=== PATIENT | female | born 1995 | race African-American/Black ===

== ENCOUNTER 2021-04-12 23:24 | Emergency (ER) | payer OTHER, MEDICAID, SELFPAY ==
[2021-04-12 23:32] VITALS: BP 120/63; PULSE 100; RESP 18; TEMP 37; O2SAT 98; BMI 33.5
[2021-04-12 23:39] VITALS: BP 120/63; PULSE 102; RESP 26; O2SAT 98
[2021-04-12 23:45] VITALS: BP 136/79; PULSE 96; RESP 32; O2SAT 98
--- NOTE | 2021-04-12 23:47 | ED.CHESTPAIN ---
HPI - Chest Pain General Chief Complaint: Chest Pain Stated Complaint: Chest pain x2 hours 24weeks Time Seen by Provider: 04/12/21 23:30 Source: patient Mode of arrival: EMS Limitations: no limitations History of Present Illness HPI narrative: 25-year-old female daily smoker is a (2+1) A1 presents with a recurrent episode of sharp and stabbing the left anterior chest pain that radiates down her arm. She denies any obvious provocation or palliation. She has been having this off and on throughout much of her and has been evaluated on multiple occasions without any significant findings. She is not dizzy nor weak or lightheaded. She denies any recent injury. She denies any history of recent travel or blood clot. She has had no fever or chills. She has had no cough. The pain started tonight while at rest and is typical and its severity, quality and distribution as normal. Patient contacted her OB provider who suggested she present to the emergency department for evaluation. Related Data Allergies Allergy/AdvReac Type Severity Reaction Status Date / Time ketamine Allergy Verified 04/12/21 23:32 Review of Systems Review of Systems Narrative: GENERAL: Denies chills, fatigue, malaise, fever, sweats. HEENT: Denies sinus pain, ear pain, sore throat, difficulty swallowing, dizziness. RESPIRATORY: Denies dyspnea, cough, wheezing, hemoptysis, sputum. CARDIOVASCULAR: See HPI GASTROINTESTINAL: Denies nausea, vomiting, abdominal pain, diarrhea, constipation, melena. : Denies dysuria, frequency, incontinence, hematuria, urinary retention. MUSCULOSKELETAL: denies weakness, joint pain, or bony pain SKIN: Denies rash, skin lesions, or other NEUROLOGIC: Denies weakness, headache, numbness, change in speech, confusion, seizures, incoordination. PSYCHIATRIC: No concerning psychosocial issues. 12 point review of systems is negative except for those stated above Patient History Social History Smoking Status: Current every day smoker Smoking Status: Current every day smoker tobacco type: vaping Substance Use Type: does not use Exam Narrative Exam Narrative: GENERAL: [25 year old patient appears stated age. Well-developed patient, in mild distress. HEAD: Atraumatic. Normocephalic. EYES: Pupils equal round and reactive. Extraocular motions intact. No scleral icterus. No injection or drainage. ENT: Nose without bleeding, purulent drainage. Throat without erythema, tonsillar hypertrophy or exudate. Airway patent. NECK: Trachea midline. Non tender CARDIOVASCULAR: Regular rate and rhythm without murmurs, gallops, or rubs. RESPIRATORY: Clear to auscultation. Breath sounds equal bilaterally. No wheezes, rales, or rhonchi. GASTROINTESTINAL: Abdomen soft, non-tender, nondistended. EXTREMITIES: No edema or joint tenderness. BACK: Nontender without deformity or crepitance. No flank tenderness. NEURO: AOx3. SKIN: No rash or erythema of visible areas Initial Vital Signs Initial Vital Signs: Vital Signs Temperature 98.6 F 04/12/21 23:32 Pulse Rate 100 H 04/12/21 23:32 Respiratory Rate 18 04/12/21 23:32 Blood Pressure 120/63 04/12/21 23:32 Pulse Oximetry 98 04/12/21 23:32 Course Orders Ordered: ED Orders 04/12/21 23:50 C-Reactive Protein Quant Stat D Dimer Stat Erythrocyte Sedimentation Rate Stat Lipase Stat Magnesium Stat NT-proBNP (BNP-Adult 18+) Stat Partial Thromboplastin Time Stat Prothrombin Time INR Stat Troponin & CK Cardiac Panel Stat 04/13/21 00:35 EKG-12 Lead Stat Consultations Consultation #1: Discussed with on-call Cardiology, Dr. Burris, at [facility]. We have discussed the patient's history and physical as well as labs and EKGs. She has sure the opinion that this is not pain and classic picture for ischemic disease, pulmonary embolism or pericarditis. We discussed other possible diagnoses such as dissection among others but agree that any significant or life-threatening cause of chest pain is unlikely present in this patient given her presentation. She recommends follow-up and appropriate return precautions Vital Signs Vital signs: Vital Signs - 8 hr 04/12/21 23:32 04/12/21 23:39 04/12/21 23:45 Temperature 98.6 F Pulse Rate 100 H 102 H 96 H Respiratory Rate 18 26 H 32 H Blood Pressure 120/63 120/63 136/79 Pulse Oximetry 98 98 98 04/13/21 00:00 04/13/21 00:15 04/13/21 00:30 Temperature Pulse Rate 93 H 97 H 92 H Respiratory Rate 30 H 33 H 30 H Blood Pressure 123/59 L 116/53 L 123/67 Pulse Oximetry 96 97 97 04/13/21 00:46 04/13/21 01:00 04/13/21 01:16 Temperature Pulse Rate 89 92 H 88 Respiratory Rate 26 H 29 H 28 H Blood Pressure 127/67 129/74 108/56 L Pulse Oximetry 98 97 98 MDM - Chest Pain Lab Data Labs: Lab Results 04/12/21 04/12/21 04/12/21 Range/Units 23:50 23:50 23:50 ESR 39 H (0-20) MM/HR PT 10.6 (10.1-12.7) SECONDS INR 0.9 (0.9-1.3) APTT (26.4-36.2) SECONDS D-Dimer 404 H (<230) ng/mL Magnesium (1.6-2.3) mg/dL Total Creatine Kinase (30-135) U/L CK-MB (CK-2) CK-MB (CK-2) Rel Index Troponin I (0.01-0.034) ng/mL C-Reactive Protein (<1.0) mg/dL NT-Pro-B Natriuret Pep (<125) pg/mL Lipase (23-300) U/L 04/12/21 04/12/21 Range/Units 23:50 23:50 ESR (0-20) MM/HR PT (10.1-12.7) SECONDS INR (0.9-1.3) APTT 36 (26.4-36.2) SECONDS D-Dimer (<230) ng/mL Magnesium 1.7 (1.6-2.3) mg/dL Total Creatine Kinase 67 (30-135) U/L CK-MB (CK-2) TNP CK-MB (CK-2) Rel Index TNP Troponin I < 0.012 (0.01-0.034) ng/mL C-Reactive Protein 1.8 H (<1.0) mg/dL NT-Pro-B Natriuret Pep 24 (<125) pg/mL Lipase 41 (23-300) U/L MDM Narrative Medical decision making narrative: Multiple causes of chest pain considered including DE, PE, pneumothorax, pneumonia, aortic dissection, and pleurisy. Patient reports no radiation, no diaphoresis, no provocation with exertion, and no vomiting Patient's symptoms improved over duration of stay with above-stated therapies. Findings and discharge diagnosis discussed with patient/family followed by verbalization of understanding Return precautions discussed with patient/family whom verbalize understanding. Discharge Plan Departure Patient Disposition: Home Clinical Impression: Atypical chest pain Instructions: DI for Atypical Chest Pain Activity Restrictions/Additional Instructions: *You have been diagnosed with [atypical chest pain. Your history, physical exam, labs and EKGs are very reassuring. There is no evidence of heart attack, pulmonary embolism (blood clot in her chest), inflammation of your heart or other significant diagnoses that would require a specific treatment tonight. *What to do: *Please continue to take your regular medications as directed. [ ] New medication prescriptions sent to your pharmacy: [ ] [ ] New medication written as a paper prescription [ x] No new medications given *Please follow up with your primary care provider in 2-3 days, call for an appointment. Let them know you were seen in the Emergency Department and that we ask that you be seen in follow up. We will electronically transmit a record of today's note if your PCP is in our system *If you do not have a primary care provider please contact the [facility] Resource line at [phone]. They will ask some questions about your medical history and help get you set up with a doctor in the community. *Return to Emergency Department if you should have any new, worsening or concerning symptoms, such as [fever greater than 101 F, shaking chills, worsening pain, persistent vomiting or other bothersome symptoms]
[2021-04-13] VITALS: BP 123/59; PULSE 93; RESP 30; O2SAT 96
[2021-04-13 00:07] LABS: INR 0.9 (0.9-1.3); Prothrombin Time 10.6 SECONDS (10.1-12.7)
[2021-04-13 00:10] LABS: Creatine Kinase 67 U/L (30-135); Lipase 41 U/L (23-300); Magnesium 1.7 mg/dL (1.6-2.3)
[2021-04-13 00:15] VITALS: BP 116/53; PULSE 97; RESP 33; O2SAT 97
[2021-04-13 00:15] LABS: PTT Partial Thromboplastin Tim 36 SECONDS (26.4-36.2)
[2021-04-13 00:23] LABS: NT-proBNP (BNP-Adult 18+) 24 pg/mL (<125); Troponin I < 0.012 ng/mL (0.01-0.034)
[2021-04-13 00:25] LABS: D Dimer 404 ng/mL (<230)
[2021-04-13 00:26] LABS: C-Reactive Protein Quant 1.8 mg/dL (<1.0); Erythrocyte Sedimentation Rate 39 MM/HR (0-20)
[2021-04-13 00:30] VITALS: BP 123/67; PULSE 92; RESP 30; O2SAT 97
[2021-04-13 00:46] VITALS: BP 127/67; PULSE 89; RESP 26; O2SAT 98
[2021-04-13 01:00] VITALS: BP 129/74; PULSE 92; RESP 29; O2SAT 97
[2021-04-13 01:16] VITALS: BP 108/56; PULSE 88; RESP 28; O2SAT 98
== END 2021-04-13 01:34 | disposition home or self-care (01) ==
PROVIDERS: Emergency Provider Emergency Medicine
DX: O26.892 Other specified pregnancy related conditions, second trimester (principal); R07.89 Other chest pain; Z3A.24 24 weeks gestation of pregnancy
CPT/HCPCS: 36415; 82550; 82553; 83690; 83735; 83880; 84484; 85379; 85610; 85651; 85730; 86140; 93005; 93010; 99283; 99284